=== PATIENT | female | born 1990 | race Caucasian/White ===

== ENCOUNTER 2020-04-12 13:41 | Outpatient (CLI) | payer OTHER ==
[~2020-04-12 13:41] MED LIST: KEFLEX CAP 500500 MG PO; KEFLEX500 MG PO; MACROBID 100 M100 MG PO; PYRIDIUM100 MG PO
== END 2020-04-12 14:31 | disposition home or self-care (01) ==
LOC: GENOP 13:41
DX: O60.00 Preterm labor without delivery, unspecified trimester (principal); O99.210 Obesity complicating pregnancy, unspecified trimester; E66.01 Morbid (severe) obesity due to excess calories; Z3A.00 Weeks of gestation of pregnancy not specified
CPT/HCPCS: 96372; J0702

== ENCOUNTER 2020-04-21 22:44 | Outpatient (CLI) | payer OTHER | END 2020-04-22 00:12 | disposition home or self-care (01) | LOC: GENOP 22:44 | DX: O26.893 Other specified pregnancy related conditions, third trimester (principal); R10.2 Pelvic and perineal pain; Z3A.30 30 weeks gestation of pregnancy | CPT/HCPCS: 59025 ==